=== PATIENT | female | born 1950 | race Caucasian/White ===

== ENCOUNTER 2017-06-16 06:55 | Day surgery (SDC) | payer MEDICARE ==
[~2017-06-16 06:55] MED LIST: Bupivacaine 0.25%/EPINEPHrine 1:200,000 30 ML SDV ONE; methylPREDNISolone Acetate 80 MG/ML SDV ONE
[2017-06-16] MEDS ORDERED: Lactated Ringers 1,000 ML IV SCH (07:30)
[2017-06-16] MEDS ORDERED: Dexamethasone 4 MG/ML SDV ONE (08:05)
[2017-06-16] MEDS ORDERED: Propofol 200 MG/20 ML SDV ONE (08:05)
[2017-06-16] MEDS ORDERED: fentaNYL 250 MCG/5 ML SDV ONE (08:05)
[2017-06-16] MEDS ORDERED: Ondansetron 4 MG/2 ML SDV ONE (08:05)
[2017-06-16] MEDS ORDERED: Clindamycin Phosphate 900 MG in Sodium Chloride 0.9% 100 ML IV ONE (08:45)
[2017-06-16 10:18] VITALS: BP 126/74
[2017-06-16] MEDS ORDERED: Acetaminophen/oxyCODONE 325-5 MG Tab PO ONE (10:30)
--- NOTE | 2017-06-16 13:13 | OR ---
DATE OF PROCEDURE: 06/16/2017 PREOPERATIVE DIAGNOSES: 1. Torn medial meniscus, left knee. 2. Osteoarthritis grade 4, medial compartment. 3. Osteoarthritis grade 2, grade 3 patella. 4. Osteoarthritis grade 1, lateral tibial plateau. POSTOPERATIVE DIAGNOSES: 1. Torn medial meniscus, left knee. 2. Osteoarthritis grade 4, medial compartment. 3. Osteoarthritis grade 2, grade 3 patella. 4. Osteoarthritis grade 1, lateral tibial plateau. INTERVENTION: Scope left knee, shaving medial meniscus, shaved to a stable chondral base, medial femoral condyle. BLOOD LOSS: Minimum. COMPLICATIONS: No complications. MEDICATIONS: Injection of 8 mL of Marcaine and 80 mg of Depo-Medrol. INDICATIONS: Mariajose, healthy for her age, had been having some knee pain for the last 2 years, flared up in the last 6 months. 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 Got worse with time. Two Synvisc injections, multiple injections. Good relief, but the last one did not have much relief. She had an MRI done which showed some osteoarthritic changes moderate with a joint effusion. Since she had failed conservative treatment it was decided to proceed with surgery. I had discussed with the patient the possible risks, benefits, alternatives, and complications of surgery. The nature of the surgery was explained. All questions were answered and I had informed consent. PROCEDURE IN DETAIL: The patient was brought to the OR. I did my markings on the left knee. She did receive antibiotics preop. The COURT USHER proceeded with general anesthesia. The patient is put on her back. A tourniquet was applied to the left proximal quadriceps. Sterile prep and dressing were done in the usual manner on the left knee. Time-out was taken to identify the correct surgical site to make sure all instrumentation were present in the room. The leg was elevated, tourniquet was raised to 250 mmHg. The knee was bent 90 degrees. An anterior lateral portal incision was done with the scalpel. A blunt probe entered the articulation, followed by irrigation and camera. Visualizing the articulation showed some arthritic changes quite intense, mostly grade 4. We could see bone exposed about 70% of the surface with slight fraying of the cartilage at the periphery, which was flaky and probably unstable which will be shaved and also degenerative tear in mid posterior horn of the medial meniscus with certainly grade 4 on the medial compartment. The intercondylar notch was fine. The patella shows diffusely grade 2, grade 3 osteoarthritic changes. Medial and lateral suprapatellar pouch did not show any loose bodies, fairly well normal. The lateral compartment, no chondromalacia of the lateral condyle but grade 1, may be slight grade 2 of the lateral plateau but no lateral meniscal tear, and the ACL was intact. An incision was done at the anterior medial portal after blunt probe was entered with the shaver, shaved the mid posterior horn of the medial meniscus, and stable chondral base mostly to periphery from loose cartilage which went well. All instrumentation were removed. The skin was closed with 3-0 simple sutures and injection of 8 mL of Marcaine, 80 mg of Depo-Medrol was done, and sterile dressing was applied. Tourniquet was released. Blood loss was minimal. There was no complication. The patient tolerated well the operation. She was sent to recovery room in good condition. If she does not do too well in the future with this procedure, then she may be a candidate to do a knee replacement in the future. Tera Connelly MD /[id number]
== END 2017-06-16 10:43 | disposition home or self-care (01) ==
LOC: JP.SDS 06:55
PROVIDERS: ATTEND Orthopaedic Surgery
DX: S83.242A Other tear of medial meniscus, current injury, left knee, initial encounter (principal); M17.12 Unilateral primary osteoarthritis, left knee; I10 Essential (primary) hypertension; E55.9 Vitamin D deficiency, unspecified; G43.919 Migraine, unspecified, intractable, without status migrainosus; F51.01 Primary insomnia; Z79.899 Other long term (current) drug therapy; Z88.2 Allergy status to sulfonamides; Z88.0 Allergy status to penicillin; Z88.8 Allergy status to other drugs, medicaments and biological substances; Z91.018 Allergy to other foods; Z88.5 Allergy status to narcotic agent; Z90.49 Acquired absence of other specified parts of digestive tract
CPT/HCPCS: 29877; A9270; J1040; J1100; J2405; J2704; J3010; J7030; J7120; S0077

== ENCOUNTER 2018-06-30 10:02 | Outpatient (CLI) | payer MEDICARE ==
[~2018-06-30 10:02] MED LIST changes: -Bupivacaine 0.25%/EPINEPHrine 1:200,000 30 ML SDV ONE; +Bupivacaine 0.5% 30 ML SDV ONE; -methylPREDNISolone Acetate 80 MG/ML SDV ONE
[2018-06-30] MEDS ORDERED: Bupivacaine 0.5% 30 ML SDV ONE (10:16)
[2018-06-30] MEDS ORDERED: methylPREDNISolone Acetate 40 MG/ML SDV ONE (10:16)
[2018-06-30 10:50] VITALS: BP 140/56; PULSE 79
--- NOTE | 2018-06-30 17:56 | ANES ---
DATE OF SERVICE: 06/30/2018 INDICATION: Mrs. Ruff is a 67-year-old female patient, referred to the [facility] to us by Dr. Chua. She is here today for her trigger points. Please see the orders for the patient's preprocedure diagnosis as well as ICD-10 code. The risks and benefits of the procedure were explained to the patient. She wished to proceed with trigger point injections. TECHNIQUE: I did find 22 noticeable cervical, lumbar and sacral trigger points. I injected each of these with 1 to 2 mL of 0.5% Sensorcaine with a Depo-Medrol mixture. She tolerated the procedure very nicely. Her vital signs remained stable throughout the procedure and nurse was with me for the entire procedure. There were no anesthesia complications noted. She is going to return as needed for any further injections. She was discharged from the [facility] per protocol. Aguilar Terrazas CRNA /[id number]
== END 2018-06-30 10:53 | disposition home or self-care (01) ==
LOC: JP.PAIN 10:02
PROVIDERS: ATTEND Internal Medicine
DX: M53.87 Other specified dorsopathies, lumbosacral region (principal)
CPT/HCPCS: 20553; J3490; J1030

== ENCOUNTER 2020-02-14 14:33 | Emergency (ER) | payer MEDICARE ==
--- NOTE | 2020-02-14 15:07 | EDM.PDOC ---
ED HPI GENERAL MEDICAL PROBLEM - General Chief Complaint: Chest Pain Stated Complaint: SORENESS & INFLAMMATION IN THE RIB AREA Time Seen by Provider: 02/14/20 14:45 Source of Information: Reports: Patient History Limitations: Reports: No Limitations - History of Present Illness INITIAL COMMENTS - FREE TEXT/NARRATIVE: 69-year-old female arrives with chest pain and pressure for the last 6 hours. It feels very similar to her last 2 episodes of costochondritis. It came on fairly gradually, hurts to breathe and hurts to sit up. She does not feel short of breath. She does feel like "an elephant is sitting on her". She has no cardiac history in fact had a normal angiogram in the past but that was "20 years ago". She has ankylosing spondylitis which causes intermittent mu sculoskeletal pain Onset: Gradual Duration: Hour(s): (6 hours) Location: Reports: Chest Quality: Reports: Pressure, Sharp, Stabbing (With movement) Associated Symptoms: Reports: Other (Pleuritic chest pain with breathing, no other symptoms) Middle Sternum Pain Score (Numeric/FACES): 8 - Related Data Allergies Allergy/AdvReac Type Severity Reaction Status Date / Time Sulfa (Sulfonamide Allergy Severe Anaphylactic Verified 02/01/20 10:20 Antibiotics) Shock acetaminophen [From Vicodin] Allergy Cannot Verified 02/01/20 10:20 Remember azithromycin [From Zithromax] Allergy Cannot Verified 02/01/20 10:20 Remember casein Allergy Cannot Verified 02/01/20 10:20 Remember cephalexin [From Keflex] Allergy Cannot Verified 02/01/20 10:20 Remember ciprofloxacin Allergy Cannot Verified 02/01/20 10:20 Remember divalproex sodium Allergy Cannot Verified 02/01/20 10:20 [From Depakote] Remember erythromycin base Allergy Cannot Verified 02/01/20 10:20 Remember hydrocodone [From Vicodin] Allergy Cannot Verified 02/01/20 10:20 Remember ibuprofen [From Motrin] Allergy Cannot Verified 02/01/20 10:20 Remember infliximab Allergy Cannot Verified 02/01/20 10:20 Remember meloxicam Allergy Cannot Verified 02/01/20 10:20 Remember methadone Allergy Cannot Verified 02/01/20 10:20 Remember naloxone [From Talwin NX] Allergy Cannot Verified 02/01/20 10:20 Remember nortriptyline [From Pamelor] Allergy Cannot Verified 02/01/20 10:20 Remember Penicillins Allergy Hives Verified 02/01/20 10:20 pentazocine [From Talwin NX] Allergy Cannot Verified 02/01/20 10:20 Remember succinylcholine Allergy Cannot Verified 02/01/20 10:20 Remember codeine AdvReac Hyperactivi Verified 02/01/20 10:20 ty hydromorphone [From Dilaudid] AdvReac Vomiting Verified 02/01/20 10:20 NSAIDS (Non-Steroidal AdvReac Diarrhea Verified 02/01/20 10:20 Anti-Inflamma Quinolones AdvReac Nausea and Verified 02/01/20 10:20 Vomiting tetracycline AdvReac Nausea and Verified 02/01/20 10:20 Vomiting whey AdvReac Diarrhea Verified 02/01/20 10:20 Home Meds: Home Meds Diphenoxylate HCl/Atropine [Diphenoxylate-Atrop 2.5-0.025] 1 tab PO ASDIRECTED PRN 10/01/16 [History] Folic Acid 1 mg PO DAILY 10/01/16 [History] estradioL [Estradiol] 1 patch TRDERM WEEKLY 10/01/16 [History] oxyCODONE HCl/Acetaminophen [oxyCODONE-Acetaminophen 10-325] 1 tab PO BID PRN 10/01/16 [History] SUMAtriptan succinate [Imitrex] 100 mg PO ASDIRECTED PRN 11/19/16 [History] Cholestyramine/Sucrose [Cholestyramine Packet] 4 gm PO DAILY PRN 06/15/17 [History] Lutein/Minerals/Vit A,C & E [Ocuvite] 1 tab PO DAILY 06/15/17 [History] Ondansetron 4 mg PO Q6H PRN 06/15/17 [History] metroNIDAZOLE [metroNIDAZOLE 0.75% Gel] 1 film TOP DAILY 06/30/18 [History] Famotidine 10 mg PO BID 01/05/19 [History] Baclofen 5 mg PO TID 02/23/19 [History] Gabapentin [Neurontin] 300 mg PO BID 11/23/19 [History] Meloxicam 15 mg PO ASDIRECTED PRN 02/01/20 [History] Rizatriptan [Maxalt MUSEUM SECURITY CHIEF] 10 mg PO ASDIRECTED PRN 02/01/20 [History] Past Medical History HEENT History: Reports: Impaired Vision Cardiovascular History: Reports: Other (See Below) Other Cardiovascular History: PVC's Respiratory History: Reports: SOB Gastrointestinal History: Reports: Chronic Diarrhea, Colon Polyp DATA REVIEWER History: Reports: Ectopic Musculoskeletal History: Reports: Arthritis, Back Pain, Chronic Neurological History: Reports: Migraines Psychiatric History: Reports: Depression, Panic Attack Hematologic History: Reports: Other (See Below) Other Hematologic History: suscinylcholinesterase deficient Immunologic History: Reports: Other (See Below) Oncologic (Cancer) History: Reports: Cervix - Infectious Disease History Infectious Disease History: Reports: Chicken Pox, Influenza, Measles, Mumps - Past Surgical History Head Surgeries/Procedures: Reports: None HEENT Surgical History: Reports: Adenoidectomy, Laser Surgery, Tonsillectomy Cardiovascular Surgical History: Reports: None Respiratory Surgical History: Reports: None GI Surgical History: Reports: Appendectomy, Cholecystectomy, Colonoscopy, EGD, Small Bowel Neurological Surgical History: Reports: None Musculoskeletal Surgical History: Reports: Shoulder Surgery Oncologic Surgical History: Reports: None Dermatological Surgical History: Reports: None Social & Family History - Family History Family Medical History: No Pertinent Family History - Tobacco Use Tobacco Use Status *Q: Never Tobacco User - Caffeine Use Caffeine Use: Reports: Soda - Recreational Drug Use Recreational Drug Use: No ED ROS GENERAL - Review of Systems Review Of Systems: See Below Constitutional: Denies: Fever, Chills, Malaise, Decreased Appetite HEENT: Reports: No Symptoms Respiratory: Reports: Pleuritic Chest Pain Cardiovascular: Reports: Chest Pain. Denies: Palpitations GI/Abdominal: Denies: Abdominal Pain, Nausea, Vomiting Skin: Reports: No Symptoms Neurological: Reports: No Symptoms Psychiatric: Reports: No Symptoms ED EXAM, GENERAL - Physical Exam Exam: See Below Exam Limited By: No Limitations General Appearance: Alert, No Apparent Distress Respiratory/Chest: No Respiratory Distress, Lungs Clear, Other (Anterior chest wall is very tender to palpation, especially on the left side) Cardiovascular: Regular Rate, Rhythm. No: Extra Beats GI/Abdominal: Soft, Non-Tender Extremities: Normal Inspection Neurological: Alert, Oriented Psychiatric: Normal Affect, Normal Mood Skin Exam: Warm, Dry #1 Interpretation EKG Date: 02/14/20 Rhythm: NSR ST-T: Normal (No significant elevation or depression, unfortunately no previous to compare) Course - Vital Signs Last Recorded V/S: Last Vital Signs Temp 97.5 F 02/14/20 14:45 Pulse 69 02/14/20 15:12 Resp 10 L 02/14/20 15:12 BP 159/83 H 02/14/20 15:12 Pulse Ox 94 L 02/14/20 15:12 - Orders/Labs/Meds Orders: Active Orders 24 hr Category Date Time Status EKG 12 Lead [EK] Routine Ther 02/14/20 15:00 Ordered Labs: Laboratory Tests 02/14/20 Range/Units 15:10 Troponin I < 0.017 (0.000-0.056) ng/mL Meds: Medications Discontinued Medications Generic Name Dose Route Start Last Admin Trade Name Freq PRN Reason Stop Dose Admin Ketorolac Tromethamine 60 mg 02/14/20 15:08 02/14/20 15:17 Toradol IM 02/14/20 15:09 60 mg ONETIME ONE Administration - Re-Assessments/Exams Free Text/Narrative Re-Assessment/Exam: 02/14/20 15:07 Symptoms are very typical for musculoskeletal pain, EKG is nonspecific. A troponin was drawn and the patient will be given 1 injection of Toradol. 02/15/20 07:32 Troponin was 0, patient was feeling better after the Toradol. She was disch arged with a diagnosis of costochondritis. Departure - Departure Time of Disposition: 16:15 Disposition: Home, Self-Care 01 Clinical Impression: Costochondritis, acute - Discharge Information Instructions: Costochondritis, [id number] Referrals: Kan Chua MD [Primary Care Provider] - Forms: ED Department Discharge Care Plan Goals: Warm compresses to the sore areas may be helpful, anti-inflammatories if tolerated and increase activity as tolerated. Return anytime if worsening or concerns. Sepsis Event Note (ED) - Evaluation Sepsis Screening Result: No Definite Risk - My Orders Last 24 Hours: My Active Orders 02/14/20 15:00 EKG 12 Lead [EK] Routine - Assessment/Plan Last 24 Hours: My Active Orders 02/14/20 15:00 EKG 12 Lead [EK] Routine
[2020-02-14] MEDS ORDERED: Ketorolac 60 MG/2 ML SDV IM ONE (15:08)
[2020-02-14 15:13] VITALS: BP 159/83; PULSE 69
== END 2020-02-14 16:16 | disposition home or self-care (01) ==
LOC: JP.ED 14:33
DX: M94.0 Chondrocostal junction syndrome [Tietze] (principal); G43.909 Migraine, unspecified, not intractable, without status migrainosus; Z88.2 Allergy status to sulfonamides; Z88.6 Allergy status to analgesic agent; Z88.1 Allergy status to other antibiotic agents; Z88.8 Allergy status to other drugs, medicaments and biological substances; Z88.5 Allergy status to narcotic agent; Z88.0 Allergy status to penicillin; Z79.899 Other long term (current) drug therapy
CPT/HCPCS: 36415; 84484; 93005; 96372; 99284; J1885

== ENCOUNTER 2021-02-10 09:41 | Emergency (ER) | payer MEDICARE ==
--- NOTE | 2021-02-10 10:37 | EDM.PDOC ---
ED HPI GENERAL MEDICAL PROBLEM - General Chief Complaint: Lower Extremity Injury/Pain Stated Complaint: LT LEG PAIN/FOOT SWOLLEN Time Seen by Provider: 02/10/21 10:34 Source of Information: Reports: Patient History Limitations: Reports: No Limitations - History of Present Illness INITIAL COMMENTS - FREE TEXT/NARRATIVE: p noted pain in the left leg with swelling on Aneta Armida Am She is having pain with weight bearing. She has no past history of blood clot problems. Her mother did of a pulmonary embolism. r Onset: Other ( Shannan Armida Am. ) Duration: Hour(s): Location: Reports: Lower Extremity, Left Associated Symptoms: Reports: No Other Symptoms, Other (pt has not had pleuritic chest pain of sob. ) Left Leg Pain Score (Numeric/FACES): 7 - Related Data Allergies Allergy/AdvReac Type Severity Reaction Status Date / Time Sulfa (Sulfonamide Allergy Severe Anaphylactic Verified 02/10/21 10:07 Antibiotics) Shock acetaminophen [From Vicodin] Allergy Cannot Verified 02/10/21 10:07 Remember azithromycin [From Zithromax] Allergy Cannot Verified 02/10/21 10:07 Remember casein Allergy Cannot Verified 02/10/21 10:07 Remember cephalexin [From Keflex] Allergy Cannot Verified 02/10/21 10:07 Remember ciprofloxacin Allergy Cannot Verified 02/10/21 10:07 Remember divalproex sodium Allergy Cannot Verified 02/10/21 10:07 [From Depakote] Remember erythromycin base Allergy Cannot Verified 02/10/21 10:07 Remember hydrocodone [From Vicodin] Allergy Cannot Verified 02/10/21 10:07 Remember ibuprofen [From Motrin] Allergy Cannot Verified 02/10/21 10:07 Remember infliximab Allergy Cannot Verified 02/10/21 10:07 Remember meloxicam Allergy Cannot Verified 02/10/21 10:07 Remember methadone Allergy Cannot Verified 02/10/21 10:07 Remember naloxone [From Talwin NX] Allergy Cannot Verified 02/10/21 10:07 Remember nortriptyline [From Pamelor] Allergy Cannot Verified 02/10/21 10:07 Remember Penicillins Allergy Hives Verified 02/10/21 10:07 pentazocine [From Talwin NX] Allergy Cannot Verified 02/10/21 10:07 Remember succinylcholine Allergy Cannot Verified 02/10/21 10:07 Remember valproic acid Allergy Other Verified 02/10/21 10:07 codeine AdvReac Hyperactivi Verified 02/10/21 10:07 ty hydromorphone [From Dilaudid] AdvReac Vomiting Verified 02/10/21 10:07 NSAIDS (Non-Steroidal AdvReac Diarrhea Verified 02/10/21 10:07 Anti-Inflamma Quinolones AdvReac Nausea and Verified 02/10/21 10:07 Vomiting tetracycline AdvReac Nausea and Verified 02/10/21 10:07 Vomiting whey AdvReac Diarrhea Verified 02/10/21 10:07 Home Meds: Home Meds Diphenoxylate HCl/Atropine [Diphenoxylate-Atrop 2.5-0.025] 1 tab PO ASDIRECTED PRN 10/01/16 [History] Folic Acid 1 mg PO DAILY 10/01/16 [History] estradioL [Estradiol] 1 patch TRDERM WEEKLY 10/01/16 [History] oxyCODONE HCl/Acetaminophen [oxyCODONE-Acetaminophen 10-325] 1 tab PO BID PRN 10/01/16 [History] SUMAtriptan succinate [Imitrex] 100 mg PO ASDIRECTED PRN 11/19/16 [History] Cholestyramine/Sucrose [Cholestyramine Packet] 4 gm PO DAILY PRN 06/15/17 [History] Ondansetron 4 mg PO Q6H PRN 06/15/17 [History] metroNIDAZOLE [metroNIDAZOLE 0.75% Gel] 1 film TOP DAILY PRN 06/30/18 [History] Baclofen 10 mg PO TID 02/23/19 [History] Rizatriptan [Maxalt MANAGER ART] 10 mg PO ASDIRECTED PRN 02/01/20 [History] Cyanocobalamin (Vitamin B12) [Vitamin B12] 1,000 mcg IM Q30D 02/29/20 [History] Cyanocobalamin/Cobamamide [B-12 5,000 MCG Sublingual] 5,000 mcg SL DAILY 02/29/20 [History] Albuterol Sulfate [Albuterol Sulfate Hfa] 18 gm IH ASDIRECTED PRN 04/18/20 [History] Diclofenac Sodium [Voltaren 1% Gel] 1 applic TOP QID PRN 04/18/20 [History] Melatonin 1 mg PO BEDTIME PRN 04/18/20 [History] Mometasone Furoate [Elocon] 1 applic TOP ASDIRECTED 04/18/20 [History] metHOTREXate sodium [Methotrexate] 2.5 mg PO ASDIRECTED 04/18/20 [History] Alendronate Sodium [Fosamax] 70 mg PO .WEEKLY 04/25/20 [History] Pantoprazole Sodium [Protonix] 40 mg PO BID 05/23/20 [History] Calcium Citrate 500 mg PO DAILY 07/06/20 [History] Fluoride (Sodium) [Prevident 5000 Plus] 1 applic TOP BID 07/06/20 [History] Fluticasone/Salmeterol [Advair 100-50] 1 puff INH BID 07/06/20 [History] Mesalamine [Lialda] 1.2 gm PO QAM 07/06/20 [History] Rosuvastatin [Crestor] 5 mg PO DAILY 07/06/20 [History] hydrOXYzine pamoate [Vistaril] 50 mg PO Q8H PRN 07/06/20 [History] Terbinafine [LamISIL] 250 mg PO DAILY 11/13/20 [History] bisoproloL fumarate [Bisoprolol Fumarate] 2.5 mg PO DAILY 01/30/21 [History] Past Medical History HEENT History: Reports: Impaired Vision Cardiovascular History: Reports: Other (See Below) Other Cardiovascular History: PVC's, 40% blockage in LAD Respiratory History: Reports: SOB Gastrointestinal History: Reports: Chronic Diarrhea, Colon Polyp Genitourinary History: Reports: None TUBE DRAWER History: Reports: Ectopic Musculoskeletal History: Reports: Arthritis, Back Pain, Chronic Neurological History: Reports: Migraines Psychiatric History: Reports: Depression, Panic Attack Endocrine/Metabolic History: Reports: None Hematologic History: Reports: Other (See Below) Other Hematologic History: suscinylcholinesterase deficient Immunologic History: Reports: Other (See Below) Oncologic (Cancer) History: Reports: Cervix - Infectious Disease History Infectious Disease History: Reports: Chicken Pox, Influenza, Measles, Mumps - Past Surgical History Head Surgeries/Procedures: Reports: None HEENT Surgical History: Reports: Adenoidectomy, Cataract Surgery, Laser Surgery, Tonsillectomy Cardiovascular Surgical History: Reports: None Respiratory Surgical History: Reports: None GI Surgical History: Reports: Appendectomy, Cholecystectomy, Colonoscopy, EGD, Small Bowel Other GI Surgeries/Procedures: bowel resection 18 inches removed Female Surgical History: Reports: Hysterectomy Neurological Surgical History: Reports: None Musculoskeletal Surgical History: Reports: Knee Replacement, Shoulder Surgery Other Musculoskeletal Surgeries/Procedures:: left total knee Oncologic Surgical History: Reports: None Dermatological Surgical History: Reports: None Social & Family History - Family History Family Medical History: No Pertinent Family History - Tobacco Use Tobacco Use Status *Q: Never Tobacco User - Caffeine Use Caffeine Use: Reports: None - Recreational Drug Use Recreational Drug Use: No Review of Systems - Review of Systems Review Of Systems: See Below Constitutional: Reports: No Symptoms Eyes: Reports: No Symptoms Ears: Reports: No Symptoms Nose: Reports: No Symptoms Mouth/Throat: Reports: No Symptoms Respiratory: Reports: No Symptoms Cardiovascular: Reports: No Symptoms Musculoskeletal: Reports: Other (pain and swelling in left leg. ) ED EXAM, GENERAL - Physical Exam Exam: See Below Free Text/Narrative:: pt arrived with pain and swelling in the left leg. She has pain in left heel. Exam Limited By: No Limitations General Appearance: Alert, Anxious, Mild Distress Ears: Normal TMs Nose: Normal Inspection Throat/Mouth: Normal Inspection Head: Atraumatic Neck: Normal Inspection Respiratory/Chest: No Respiratory Distress Cardiovascular: Regular Rate, Rhythm GI/Abdominal: Soft, Non-Tender Rectal (Female) Exam: Deferred Back Exam: Normal Inspection Extremities: Other (pt has a very tender and mildly swollen left leg. She is tender in the calf and she is tender behind the knee. She has had a total knee on thw left. She is tender over the left heel. r) Neurological: Alert, Oriented, Normal Cognition Course - Vital Signs Last Recorded V/S: Last Vital Signs Temp 36.1 C 02/10/21 10:06 Pulse 54 L 02/10/21 15:12 Resp 16 02/10/21 15:12 BP 161/67 H 02/10/21 15:12 Pulse Ox 97 02/10/21 15:12 - Orders/Labs/Meds Labs: Laboratory Tests 02/10/21 02/10/21 02/10/21 Range/Units 10:32 10:45 11:40 WBC 8.7 (4.5-11.0) K/uL RBC 3.66 (3.30-5.50) M/uL Hgb 11.6 L (12.0-15.0) g/dL Hct 36.2 (36.0-48.0) % MCV 99 H (80-98) fL MCH 32 H (27-31) pg MCHC 32 (32-36) % Plt Count 285 (150-400) K/uL Neut % (Auto) 63.5 (36-66) % Lymph % (Auto) 23.7 L (24-44) % [place] % (Auto) 10.2 H (2-6) % Eos % (Auto) 1.9 L (2-4) % Baso % (Auto) 0.7 (0-1) % D-Dimer, Quantitative 2039.38 H (0.0-500.0) ng/mL Creatinine (0.6-1.0) mg/dL Est Cr Clr Drug Dosing mL/min Estimated GFR (MDRD) (>60) C-Reactive Protein 0.08 (0.0-0.3) mg/dL 02/10/21 Range/Units 12:30 WBC (4.5-11.0) K/uL RBC (3.30-5.50) M/uL Hgb (12.0-15.0) g/dL Hct (36.0-48.0) % MCV (80-98) fL MCH (27-31) pg MCHC (32-36) % Plt Count (150-400) K/uL Neut % (Auto) (36-66) % Lymph % (Auto) (24-44) % [place] % (Auto) (2-6) % Eos % (Auto) (2-4) % Baso % (Auto) (0-1) % D-Dimer, Quantitative (0.0-500.0) ng/mL Creatinine 1.1 H (0.6-1.0) mg/dL Est Cr Clr Drug Dosing 33.21 mL/min Estimated GFR (MDRD) 49 L (>60) C-Reactive Protein (0.0-0.3) mg/dL Meds: Medications Discontinued Medications Generic Name Dose Route Start Last Admin Trade Name Freq PRN Reason Stop Dose Admin Sodium Chloride 70 mls @ 3 mls/sec 02/10/21 12:25 02/10/21 12:25 Normal Saline IV 02/10/21 12:26 3 mls/sec ASDIRECTED ONE Administration Sodium Chloride 1,000 mls @ 999 mls/hr 02/10/21 14:00 02/10/21 14:00 Normal Saline IV 999 mls/hr ASDIRECTED NIESHA Administration Iopamidol 100 ml 02/10/21 12:30 02/10/21 13:07 Iopamidol 755 Mg/Ml 100 Ml Bottle IV 100 ml . DIRECTED NEISHA Administration Oxycodone/Acetaminophen 1 tab 02/10/21 14:11 02/10/21 14:40 Acetaminophen/Oxycodone 325-5 Mg Tab PO 02/10/21 14:12 1 tab ONETIME ONE Administration Sodium Chloride 10 ml 02/10/21 12:44 02/10/21 12:46 Sodium Chloride 0.9% 10 Ml Syringe FLUSH 10 ml . DIRECTED PRN Administration [id number] EXAM - Re-Assessments/Exams Free Text/Narrative Re-Assessment/Exam: 02/10/21 15:03 ddimer over 1999. Her us was neg for clot. Her chest angio was done because of the high ddimer. and left leg pain. The angio was neg. An xary of the foot was obtained which showed a spur. 02/19/21 18:42 Departure - Departure Time of Disposition: 14:57 Disposition: Home, Self-Care 01 Condition: Fair Clinical Impression: Pain in left leg, Heel spur, Elevated d-dimer - Discharge Information Instructions: Heel Spur Referrals: Kan Chua MD [Primary Care Provider] - Forms: ED Department Discharge Care Plan Goals: heel pad for spur left heel, motrin 600mg tid with food for 5 days, pepcid 20 mg bid while taking the motrin, soak foot in warm water, moist heat to the left leg,rtc if increased problem. push fluids. Sepsis Event Note (ED) - Evaluation Sepsis Screening Result: No Definite Risk
--- NOTE | 2021-02-10 12:26 | CRLUS ---
For Patients: As a result of the Century Cures Act, medical imaging exams and procedure reports are released immediately into your electronic medical record. You may view this report before your referring provider. If you have questions, please contact your health care provider. INDICATION: Elevated D-dimer leg pain TECHNIQUE: A compression venous ultrasound exam was performed of left lower extremities using schulte scale imaging, color Doppler and spectral Doppler analysis. FINDINGS: Sonographic imaging of the left lower extremities demonstrates normal compressibility and color Doppler venous blood flow within the common femoral, deep femoral, and proximal greater saphenous veins. Within the thighs the femoral veins are patent and compressible. At a lower level the popliteal and posterior tibial veins also show normal compressibility and color Doppler venous blood flow. IMPRESSION: No evidence of deep vein thrombosis within either the left lower extremity. Dictated by Emmy Avila MD @ 02/10/2021 12:23:39 PM (Electronically Signed)
[2021-02-10] MEDS ORDERED: Iopamidol 755 Mg/ML 100 ML Bottle IV SCH (12:30)
[2021-02-10] MEDS ORDERED: Sodium Chloride 0.9% 10 ML Syringe FLUSH PRN (12:44)
[2021-02-10] MEDS ORDERED: Sodium Chloride 0.9% 1,000 ML IV SCH (14:00)
--- NOTE | 2021-02-10 14:00 | CRLCT ---
For Patients: As a result of the Century Cures Act, medical imaging exams and procedure reports are released immediately into your electronic medical record. You may view this report before your referring provider. If you have questions, please contact your health care provider. Clinical INDICATION: Shortness of breath. Elevated D-dimer. TECHNIQUE: Axial intravenously infused CT cuts were performed from thoracic inlet to the upper abdomen. FINDINGS: There are no pulmonary emboli. There is no aortic aneurysm or dissection. There is mild atelectasis in both lungs. There are no pulmonary nodules or masses. There are no pleural or pericardial fluid collections. There are no enlarged hilar or mediastinal or axillary lymph nodes. The visualized liver, spleen, pancreas, adrenals and kidneys appear normal. Impression : Negative for pulmonary emboli. Please note that all CT scans at this facility use dose modulation, iterative reconstruction, and/or weight-based dosing when appropriate to reduce radiation dose to as low as reasonably achievable. Dictated by Leon Martinez MD @ 02/10/2021 1:58:01 PM (Electronically Signed)
[2021-02-10] MEDS ORDERED: Acetaminophen/oxyCODONE 325-5 MG Tab PO ONE (14:11)
[2021-02-10 15:12] VITALS: BP 161/67; PULSE 54
--- NOTE | 2021-02-11 15:09 | CR ---
FOOT RIGHT 3 views CLINICAL HISTORY:Heel pain FINDINGS:There is a large calcaneal spur. There are moderate hammertoe deformities. 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
== END 2021-02-10 15:31 | disposition home or self-care (01) ==
LOC: JP.ED 09:41
DX: M77.32 Calcaneal spur, left foot (principal); R79.89 Other specified abnormal findings of blood chemistry; Z88.2 Allergy status to sulfonamides; Z88.1 Allergy status to other antibiotic agents; Z88.0 Allergy status to penicillin; Z88.5 Allergy status to narcotic agent; Z88.8 Allergy status to other drugs, medicaments and biological substances; Z79.899 Other long term (current) drug therapy
CPT/HCPCS: 36415; 71275; 73630; 82565; 85025; 85379; 86140; 93971; 99284; A9270; J7030; Q9967

== ENCOUNTER 2021-07-01 06:47 | Day surgery (SDC) | payer MEDICARE ==
[~2021-07-01 06:47] MED LIST changes: -Bupivacaine 0.5% 30 ML SDV ONE; +Bupivacaine 0.5% 50 ML MDV ONE
[2021-07-01] MEDS ORDERED: Lactated Ringers 1,000 ML IV SCH (07:00)
[2021-07-01] MEDS ORDERED: Neostigmine Methylsulfate 1 MG/ML 5 ML Syringe ONE (07:21)
[2021-07-01] MEDS ORDERED: Glycopyrrolate 0.2 MG/ML 5 ML MDV ONE (07:21)
[2021-07-01] MEDS ORDERED: Propofol 200 MG/20 ML SDV ONE (07:21)
[2021-07-01] MEDS ORDERED: Rocuronium 50 MG/5 ML Vial ONE (07:21)
[2021-07-01] MEDS ORDERED: Dexamethasone 4 MG/ML SDV ONE (07:21)
[2021-07-01] MEDS ORDERED: Ondansetron 4 MG/2 ML SDV ONE (07:21)
[2021-07-01] MEDS ORDERED: fentaNYL 250 MCG/5 ML SDV ONE ×2 (07:22→09:16)
[2021-07-01] MEDS ORDERED: Bupivacaine 0.5% 30 ML SDV ONE ×2 (07:23→07:24)
[2021-07-01] MEDS ORDERED: Nozin Nasal Sanitizer NASBOTH SCH (07:30)
[2021-07-01] MEDS ORDERED: Clindamycin Phosphate 900 MG in Sodium Chloride 0.9% 100 ML IV ONE (08:30)
[2021-07-01] MEDS ORDERED: Ondansetron 4 MG/2 ML SDV IVPUSH PRN (11:05)
[2021-07-01] MEDS ORDERED: Acetaminophen/oxyCODONE 325-5 MG Tab PO PRN (11:11)
[2021-07-01] MEDS ORDERED: Rizatriptan 10 MG Tab.DIS PO PRN (11:12)
[2021-07-01] MEDS ORDERED: Albuterol 8 GM Inhaler INH PRN (11:12)
[2021-07-01] MEDS ORDERED: traMADol 50 MG Tab PO PRN (11:12)
[2021-07-01] MEDS ORDERED: Atropine/Diphenoxylate 0.025-2.5 MG Tab PO PRN (11:12)
[2021-07-01] MEDS ORDERED: Sodium Chloride 0.9% 1,000 ML IV SCH (11:15)
[2021-07-01] MEDS ORDERED: Melatonin 3 MG Tab PO PRN (11:20)
[2021-07-01] MEDS ORDERED: Morphine 2 MG/ML SYRINGE IVPUSH ONE (11:30)
[2021-07-01] MEDS: Acetaminophen/oxyCODONE 325-10 MG Tab PO PRN ×2 (13:07→21:08)
[2021-07-01] MEDS: hydrOXYzine HCl 25 MG Tab PO PRN (13:08)
[2021-07-01] MEDS: Acetaminophen 325 MG Tab PO SCH ×2 (14:56→21:01)
[2021-07-01] MEDS: Baclofen 10 MG Tab PO SCH ×2 (14:56→21:03)
[2021-07-01] MEDS ORDERED: Clindamycin Phosphate 900 MG in Sodium Chloride 0.9% 100 ML IV SCH (16:30)
[2021-07-01] MEDS ORDERED: Benzocaine/Cetylpyridinium/Menthol Lozenge MUCMEM PRN (16:52)
[2021-07-01] MEDS ORDERED: BISOPROLOL 5 MG PO SCH (17:00)
[2021-07-01] MEDS ORDERED: Rosuvastatin 10 MG Tab PO SCH (17:00)
[2021-07-01] MEDS: Pantoprazole 40 MG Tab.CR PO SCH (17:44)
[2021-07-01] MEDS ORDERED: diphenhydrAMINE 25 MG Cap PO PRN (18:16)
[2021-07-01] MEDS: Aspirin 81 MG Tab.Chew PO SCH (21:01)
[2021-07-01] MEDS: Nozin Nasal Sanitizer NASBOTH SCH (21:01)
[2021-07-01] MEDS: Docusate Sodium 100 MG Cap PO SCH (21:03)
[2021-07-01] MEDS: Formoterol/Mometasone 100-5 MCG 8.8 GM Inhaler IH SCH (21:03)
[2021-07-02] MEDS: hydrOXYzine HCl 25 MG Tab PO PRN (00:16)
[2021-07-02] MEDS: HYDROmorphone 0.5 MG/0.5 ML Syringe IVPUSH PRN ×2 (01:11→06:32)
[2021-07-02] MEDS: Acetaminophen 325 MG Tab PO SCH ×2 (01:11→07:16)
[2021-07-02] MEDS: Acetaminophen/oxyCODONE 325-10 MG Tab PO PRN ×2 (04:01→08:37)
[2021-07-02] MEDS: Pantoprazole 40 MG Tab.CR PO SCH (07:16)
[2021-07-02] MEDS: Formoterol/Mometasone 100-5 MCG 8.8 GM Inhaler IH SCH (07:39)
[2021-07-02] MEDS: Aspirin 81 MG Tab.Chew PO SCH (08:24)
[2021-07-02] MEDS: Docusate Sodium 100 MG Cap PO SCH (08:24)
[2021-07-02] MEDS: Nozin Nasal Sanitizer NASBOTH SCH (08:24)
[2021-07-02] MEDS: Baclofen 10 MG Tab PO SCH (08:25)
[2021-07-02] MEDS ORDERED: Calcium Carbonate 500 MG Tab.Chew PO SCH (09:00)
[2021-07-02] MEDS ORDERED: Non-Formulary Medication 1 Each (Rosuvastatin [Crestor] 5 MG Tablet) PO SCH (09:00)
[2021-07-02] MEDS ORDERED: Folic Acid 1 MG Tab PO SCH (09:00)
[2021-07-02] MEDS ORDERED: Cyanocobalamin (Vitamin B12) 1,000 MCG Tab SL SCH (09:00)
[2021-07-02] MEDS ORDERED: BISOPROLOL FUMARATE 5 MG PO SCH (09:00)
[2021-07-02] MEDS ORDERED: MESALAMINE 1.2 GM PO SCH (09:00)
[2021-07-02] MEDS ORDERED: Terbinafine 250 MG Tab PO SCH (09:00)
[2021-07-02 11:32] VITALS: BP 131/60; PULSE 55
[2021-07-07] MEDS ORDERED: Methotrexate 2.5 MG Tab PO SCH (09:00)
== END 2021-07-02 13:47 | disposition home or self-care (01) ==
LOC: JP.SDS 06:47 → JP.MS 11:05 → JP.SDS 07-02 13:47
PROVIDERS: ATTEND Specialist
DX: M19.011 Primary osteoarthritis, right shoulder (principal); I10 Essential (primary) hypertension; G47.00 Insomnia, unspecified; E66.9 Obesity, unspecified; Z88.8 Allergy status to other drugs, medicaments and biological substances; Z88.4 Allergy status to anesthetic agent; Z88.1 Allergy status to other antibiotic agents; Z88.2 Allergy status to sulfonamides; Z88.5 Allergy status to narcotic agent; Z88.0 Allergy status to penicillin; Z88.6 Allergy status to analgesic agent; Z91.018 Allergy to other foods; Z68.30 Body mass index [BMI] 30.0-30.9, adult; Z79.899 Other long term (current) drug therapy; Z96.611 Presence of right artificial shoulder joint
CPT/HCPCS: 36415; 73020-26-RT; 73020-RT; 85027; 97110-GP; 97116-GP; 97162-GP; 97165-GO; 97535-GP; A9270-GY; C1713; J1100; J1170; J2270; J2405; J2704; J2710; J3010; J3490; J7030; J7120

== ENCOUNTER 2021-08-20 09:37 | Emergency (ER) | payer MEDICARE ==
[2021-08-20] MEDS ORDERED: fentaNYL 50 MCG/ML SDV IVPUSH ONE (12:42)
[2021-08-20] MEDS ORDERED: Sodium Chloride 0.9% 10 ML Syringe FLUSH ONE (13:49)
[2021-08-20] MEDS ORDERED: Sodium Chloride 0.9% 100 ML IV ONE (13:49)
[2021-08-20] MEDS ORDERED: Iopamidol 755 Mg/ML 100 ML Bottle IV SCH (14:00)
[2021-08-20 14:37] VITALS: BP 165/66; PULSE 61
== END 2021-08-20 15:17 | disposition home or self-care (01) ==
LOC: JP.ED 09:37
DX: R47.01 Aphasia (principal); M25.511 Pain in right shoulder; Z88.8 Allergy status to other drugs, medicaments and biological substances; Z88.2 Allergy status to sulfonamides; Z88.1 Allergy status to other antibiotic agents; Z88.5 Allergy status to narcotic agent; Z88.0 Allergy status to penicillin; Z91.048 Other nonmedicinal substance allergy status; Z79.899 Other long term (current) drug therapy
CPT/HCPCS: 36415; 70450; 70496; 70498; 80048; 85025; 85651; 86140; 96374; 99284; J3010; J3490; Q9967

== ENCOUNTER 2022-03-07 11:02 | Emergency (ER) | payer MEDICARE ==
[2022-03-07] MEDS ORDERED: Sodium Chloride 0.9% 500 ML IV ONE (12:06)
[2022-03-07 13:40] LABS: ESTIMATED GFR 59 mL/min (>60)
[2022-03-07 16:11] VITALS: BP 135/51; PULSE 78
== END 2022-03-07 16:30 | disposition home or self-care (01) ==
LOC: JP.ED 11:02
DX: U07.1 COVID-19 (principal); R53.1 Weakness; Z88.2 Allergy status to sulfonamides; Z88.1 Allergy status to other antibiotic agents; Z88.6 Allergy status to analgesic agent; Z88.5 Allergy status to narcotic agent; Z88.0 Allergy status to penicillin; Z91.048 Other nonmedicinal substance allergy status; Z79.899 Other long term (current) drug therapy; Z86.16 Personal history of COVID-19; Z90.49 Acquired absence of other specified parts of digestive tract; Z90.710 Acquired absence of both cervix and uterus
CPT/HCPCS: 36415; 80053; 85025; 96360; 99283; 99285-25; J7030

== ENCOUNTER 2022-10-08 08:01 | Day surgery (SDC) | payer MEDICARE ==
[2022-10-08] MEDS ORDERED: fentaNYL 250 MCG/5 ML SDV ONE (08:03)
[2022-10-08] MEDS ORDERED: Neostigmine Methylsulfate 1 MG/ML 5 ML Syringe ONE (08:03)
[2022-10-08] MEDS ORDERED: Glycopyrrolate 0.2 MG/ML 5 ML MDV ONE (08:03)
[2022-10-08] MEDS ORDERED: Rocuronium 50 MG/5 ML Vial ONE (08:03)
[2022-10-08] MEDS ORDERED: Propofol 200 MG/20 ML SDV ONE (08:03)
[2022-10-08] MEDS ORDERED: Dexamethasone 4 MG/ML SDV ONE (08:03)
[2022-10-08] MEDS ORDERED: Ondansetron 4 MG/2 ML SDV ONE (08:03)
[2022-10-08] MEDS ORDERED: Bupivacaine 0.5% 50 ML MDV ONE (08:17)
[2022-10-08] MEDS ORDERED: Lactated Ringers 1,000 ML IV SCH (08:30)
[2022-10-08] MEDS ORDERED: Nozin Nasal Sanitizer NASBOTH ONE (08:30)
[2022-10-08 08:47] LABS: BASOPHILS ABSOLUTE AUTO 0.04 K/uL (0.00-0.10); BASOPHILS PERCENT AUTO 0.4 % (0.1-1.3); EOSINOPHILS ABSOLUTE AUTO 0.25 K/uL (0.00-0.40); EOSINOPHILS PERCENT AUTO 2.3 % (0.0-5.4); HEMATOCRIT 37.5 % (34.3-46.0); HEMOGLOBIN 12.7 g/dL (11.2-15.5); IMMATURE GRAN ABSOLUTE AUTO 0.08 K/uL (0.00-0.23); IMMATURE GRAN PERCENT AUTO 0.8 % (0.0-0.7); LYMPHOCYTES ABSOLUTE AUTO 1.68 K/uL (0.8-3.3); LYMPHOCYTES PERCENT AUTO 15.8 % (11.4-47.7); MEAN CORPUSCULAR HEMOGLOBIN 33.3 pg (31.6-35.5); MEAN CORPUSCULAR HGB CONC 33.9 g/dL (31.6-35.5); MEAN CORPUSCULAR VOLUME 98.4 fL (81.4-99.0); MONOCYTES ABSOLUTE AUTO 0.59 K/uL (0.20-0.90); MONOCYTES PERCENT AUTO 5.5 % (3.3-12.6); NEUTROPHILS ABSOLUTE AUTO 8.01 K/uL (1.0-7.6); NEUTROPHILS PERCENT AUTO 75.2 % (40.0-78.1); PLATELET COUNT,PLT 285 K/uL (130-375); RED BLOOD CELL COUNT 3.81 M/uL (3.77-5.24); WHITE BLOOD CELL COUNT,WBC 10.7 K/uL (3.2-11.0)
[2022-10-08 09:07] LABS: A/G RATIO 0.9 (1.2-2.2); ALANINE AMINOTRANSFERASE,ALT 22 U/L (12-78); ALBUMIN 2.9 g/dL (3.4-5.0); ALKALINE PHOSPHATASE 52 U/L (46-116); ASPARTATE AMNIOTRANSFERASE,AST 15 U/L (15-37); BILIRUBIN TOTAL 0.5 mg/dL (0.2-1.0); BLOOD UREA NITROGEN,BUN 19 mg/dL (7-18); CALCIUM 8.3 mg/dL (8.5-10.1); CARBON DIOXIDE,CO2 26 mmol/L (21-32); CHLORIDE,CL 104 mmol/L (100-108); CREATININE 1.1 mg/dL (0.6-1.0); EST CRCL DRUG DOSING (CG) 32.72 mL/min; ESTIMATED GFR 53 mL/min (>60); GLUCOSE RANDOM 90 mg/dL (74-106); POTASSIUM,K 3.6 mmol/L (3.6-5.2); PROTEIN TOTAL,TP 6.2 g/dL (6.4-8.2); SODIUM,NA 139 mmol/L (140-148)
[2022-10-08 09:08] LABS: ANION GAP 12.6 mmol/L (5.0-14.0)
[2022-10-08] MEDS ORDERED: Sugammadex Sodium 200 MG/2 ML VIAL ONE (11:17)
[2022-10-08] MEDS ORDERED: traMADol 50 MG Tab PO PRN (12:25)
[2022-10-08 14:07] VITALS: BP 146/62; PULSE 69
== END 2022-10-08 14:29 | disposition home or self-care (01) ==
LOC: JP.SDS 08:01
PROVIDERS: ATTEND Specialist
DX: S73.191A Other sprain of right hip, initial encounter (principal); I10 Essential (primary) hypertension; K21.9 Gastro-esophageal reflux disease without esophagitis; Z88.8 Allergy status to other drugs, medicaments and biological substances; Z86.73 Personal history of transient ischemic attack (TIA), and cerebral infarction without residual deficits; Z88.0 Allergy status to penicillin; Z88.2 Allergy status to sulfonamides; Z88.5 Allergy status to narcotic agent; Z88.1 Allergy status to other antibiotic agents
CPT/HCPCS: 29862; 36415; 76000; 80053; 85025; 93005; 93010; A9270; C1769; J1100; J2405; J2704; J2710; J3010; J3490; J7120

== ENCOUNTER 2023-09-30 23:52 | Emergency (ER) | payer MEDICARE ==
[2023-10-01] MEDS ORDERED: droPERidol 1.25 MG in Sodium Chloride 0.9% 50 ML IV ONE (00:16)
[2023-10-01] MEDS: diphenhydrAMINE 50 MG/ML SDV IVPUSH ONE (00:40)
[2023-10-01] MEDS: droPERidol 5 MG/2 ML SDV ONE (00:43)
[2023-10-01] MEDS: droPERidol 5 MG/2 ML SDV IVPUSH ONE (00:44)
[2023-10-01] MEDS: Sodium Chloride 0.9% 1,000 ML IV SCH (00:46)
[2023-10-01 01:09] LABS: A/G RATIO 0.9 (1.2-2.2); ALANINE AMINOTRANSFERASE,ALT 29 U/L (12-78); ALBUMIN 3.2 g/dL (3.4-5.0); ALKALINE PHOSPHATASE 48 U/L (46-116); ANION GAP 9.5 mmol/L (5.0-14.0); ASPARTATE AMNIOTRANSFERASE,AST 37 U/L (15-37); BILIRUBIN TOTAL 0.5 mg/dL (0.2-1.0); BLOOD UREA NITROGEN,BUN 12 mg/dL (7-18); CALCIUM 8.9 mg/dL (8.5-10.1); CARBON DIOXIDE,CO2 29 mmol/L (21-32); CHLORIDE,CL 107 mmol/L (100-108); CREATININE 1.2 mg/dL (0.6-1.0); EST CRCL DRUG DOSING (CG) 29.54 mL/min; ESTIMATED GFR 48 mL/min (>60); GLUCOSE RANDOM 102 mg/dL (74-106); PROTEIN TOTAL,TP 6.6 g/dL (6.4-8.2); SODIUM,NA 145 mmol/L (140-148)
[2023-10-01 01:38] VITALS: BP 168/66; PULSE 64
== END 2023-10-01 03:00 | disposition home or self-care (01) ==
LOC: JP.ED 23:52
DX: G43.109 Migraine with aura, not intractable, without status migrainosus (principal); Z88.0 Allergy status to penicillin; Z88.1 Allergy status to other antibiotic agents; Z88.2 Allergy status to sulfonamides; Z88.8 Allergy status to other drugs, medicaments and biological substances; Z79.899 Other long term (current) drug therapy; Z86.16 Personal history of COVID-19
CPT/HCPCS: 36415; 70450; 80053; 96361; 96374; 99284; J1200; J1790; J7030

== ENCOUNTER 2023-10-16 14:32 | Emergency (ER) | payer MEDICARE ==
[2023-10-16] MEDS: Sodium Chloride 0.9% 1,000 ML IV SCH (16:13)
[2023-10-16] MEDS: Prochlorperazine 10 MG/2 ML SDV IVPUSH ONE (16:14)
[2023-10-16] MEDS: diphenhydrAMINE 50 MG/ML SDV IVPUSH ONE (16:17)
[2023-10-16 17:45] VITALS: BP 174/73; PULSE 51
== END 2023-10-16 18:23 | disposition home or self-care (01) ==
LOC: JP.ED 14:32
DX: G43.909 Migraine, unspecified, not intractable, without status migrainosus (principal); E78.00 Pure hypercholesterolemia, unspecified; Z86.16 Personal history of COVID-19; Z90.49 Acquired absence of other specified parts of digestive tract; Z90.710 Acquired absence of both cervix and uterus; Z79.899 Other long term (current) drug therapy; Z88.1 Allergy status to other antibiotic agents; Z88.2 Allergy status to sulfonamides; Z88.0 Allergy status to penicillin; Z88.5 Allergy status to narcotic agent; Z88.8 Allergy status to other drugs, medicaments and biological substances; Z88.6 Allergy status to analgesic agent; Z91.048 Other nonmedicinal substance allergy status
CPT/HCPCS: 96365; 96375; 99283; J0780; J1200; J3490; J7030

== ENCOUNTER 2023-10-22 12:25 | Emergency (ER) | payer MEDICARE ==
[2023-10-22 12:52] LABS: BASOPHILS ABSOLUTE AUTO 0.04 K/uL (0.00-0.10); BASOPHILS PERCENT AUTO 0.5 % (0.1-1.3); EOSINOPHILS ABSOLUTE AUTO 0.24 K/uL (0.00-0.40); EOSINOPHILS PERCENT AUTO 3.2 % (0.0-5.4); HEMOGLOBIN 13.6 g/dL (11.2-15.5); IMMATURE GRAN PERCENT AUTO 0.3 % (0.0-0.7); LYMPHOCYTES ABSOLUTE AUTO 1.62 K/uL (0.8-3.3); LYMPHOCYTES PERCENT AUTO 21.4 % (11.4-47.7); MEAN CORPUSCULAR VOLUME 97.1 fL (81.4-99.0); MONOCYTES ABSOLUTE AUTO 0.56 K/uL (0.20-0.90); MONOCYTES PERCENT AUTO 7.4 % (3.3-12.6); NEUTROPHILS ABSOLUTE AUTO 5.08 K/uL (1.0-7.6); NEUTROPHILS PERCENT AUTO 67.2 % (40.0-78.1); PLATELET COUNT,PLT 228 K/uL (130-375); RED BLOOD CELL COUNT 4.12 M/uL (3.77-5.24); WHITE BLOOD CELL COUNT,WBC 7.6 K/uL (3.2-11.0)
[2023-10-22 12:53] LABS: IMMATURE GRAN ABSOLUTE AUTO 0.02 K/uL (0.00-0.23)
[2023-10-22 13:07] LABS: ANION GAP 6.3 mmol/L (5.0-14.0); CALCIUM 9.3 mg/dL (8.5-10.1); CREATININE 1.2 mg/dL (0.6-1.0); EST CRCL DRUG DOSING (CG) 29.54 mL/min
[2023-10-22] MEDS: Prochlorperazine 10 MG/2 ML SDV IVPUSH ONE (15:35)
[2023-10-22] MEDS: diphenhydrAMINE 50 MG/ML SDV IVPUSH ONE (15:35)
[2023-10-22] MEDS: Sodium Chloride 0.9% 10 ML Syringe FLUSH PRN (15:38)
[2023-10-22 16:37] VITALS: BP 152/62; PULSE 49
== END 2023-10-22 17:26 | disposition home or self-care (01) ==
LOC: JP.ED 12:25
DX: G43.909 Migraine, unspecified, not intractable, without status migrainosus (principal); R47.01 Aphasia; E78.00 Pure hypercholesterolemia, unspecified; Z90.49 Acquired absence of other specified parts of digestive tract; Z90.710 Acquired absence of both cervix and uterus; Z79.899 Other long term (current) drug therapy; Z88.0 Allergy status to penicillin; Z88.5 Allergy status to narcotic agent; Z88.6 Allergy status to analgesic agent; Z88.8 Allergy status to other drugs, medicaments and biological substances; Z88.1 Allergy status to other antibiotic agents; Z88.2 Allergy status to sulfonamides; Z91.018 Allergy to other foods
CPT/HCPCS: 36415; 70551; 80048; 85025; 96365; 96375; 99285; J0780; J1200; J3490; 99284

== ENCOUNTER 2023-11-15 13:58 | Emergency (ER) | payer MEDICARE ==
[2023-11-15 15:46] LABS: BASOPHILS ABSOLUTE AUTO 0.06 K/uL (0.00-0.10); BASOPHILS PERCENT AUTO 1.2 % (0.1-1.3); EOSINOPHILS ABSOLUTE AUTO 0.13 K/uL (0.00-0.40); EOSINOPHILS PERCENT AUTO 2.7 % (0.0-5.4); HEMATOCRIT 35.7 % (34.3-46.0); HEMOGLOBIN 12.6 g/dL (11.2-15.5); IMMATURE GRAN PERCENT AUTO 0.2 % (0.0-0.7); LYMPHOCYTES ABSOLUTE AUTO 1.09 K/uL (0.8-3.3); LYMPHOCYTES PERCENT AUTO 22.4 % (11.4-47.7); MEAN CORPUSCULAR HEMOGLOBIN 33.6 pg (31.6-35.5); MEAN CORPUSCULAR HGB CONC 35.3 g/dL (31.6-35.5); MEAN CORPUSCULAR VOLUME 95.2 fL (81.4-99.0); MONOCYTES ABSOLUTE AUTO 0.65 K/uL (0.20-0.90); MONOCYTES PERCENT AUTO 13.3 % (3.3-12.6); NEUTROPHILS ABSOLUTE AUTO 2.93 K/uL (1.0-7.6); NEUTROPHILS PERCENT AUTO 60.2 % (40.0-78.1); PLATELET COUNT,PLT 258 K/uL (130-375); RED BLOOD CELL COUNT 3.75 M/uL (3.77-5.24); WHITE BLOOD CELL COUNT,WBC 4.9 K/uL (3.2-11.0)
[2023-11-15 15:47] LABS: IMMATURE GRAN ABSOLUTE AUTO 0.01 K/uL (0.00-0.23)
[2023-11-15 15:57] LABS: ALANINE AMINOTRANSFERASE,ALT 36 U/L (12-78); ALBUMIN 3.3 g/dL (3.4-5.0); ALKALINE PHOSPHATASE 49 U/L (46-116); ASPARTATE AMNIOTRANSFERASE,AST 54 U/L (15-37); BILIRUBIN TOTAL 0.7 mg/dL (0.2-1.0); BLOOD UREA NITROGEN,BUN 11 mg/dL (7-18); CALCIUM 9.3 mg/dL (8.5-10.1); CARBON DIOXIDE,CO2 22 mmol/L (21-32); CHLORIDE,CL 109 mmol/L (100-108); ESTIMATED GFR 59 mL/min (>60); GLUCOSE RANDOM 89 mg/dL (74-106); POTASSIUM,K 3.6 mmol/L (3.6-5.2); PROTEIN TOTAL,TP 6.7 g/dL (6.4-8.2); SODIUM,NA 144 mmol/L (140-148)
[2023-11-15 15:58] LABS: ANION GAP 16.6 mmol/L (5.0-14.0); C-REACTIVE PROTEIN < 0.50 mg/dL (<0.50)
[2023-11-15] MEDS: Sodium Chloride 0.9% 10 ML Syringe FLUSH ONE (16:37)
[2023-11-15 16:47] VITALS: BP 155/76; PULSE 89
[2023-11-15] MEDS: Iopamidol 612 MG/ML 100 ML Bottle IV SCH (20:46)
[2023-11-15] MEDS: Sodium Chloride 0.9% 10 ML Syringe FLUSH PRN (20:46)
[2023-11-15] MEDS: Sodium Chloride 0.9% 80 ML IV SCH (20:47)
== END 2023-11-15 18:52 | disposition home or self-care (01) ==
LOC: JP.ED 13:58
DX: R10.84 Generalized abdominal pain (principal); R10.812 Left upper quadrant abdominal tenderness; R11.2 Nausea with vomiting, unspecified; Z88.0 Allergy status to penicillin; Z88.1 Allergy status to other antibiotic agents; Z88.2 Allergy status to sulfonamides; Z88.8 Allergy status to other drugs, medicaments and biological substances; Z79.899 Other long term (current) drug therapy; Z90.49 Acquired absence of other specified parts of digestive tract; Z90.710 Acquired absence of both cervix and uterus
CPT/HCPCS: 36415; 74177; 80053; 83605; 83690; 85025; 86140; 99284; J3490; Q9967

== ENCOUNTER 2024-04-21 12:13 | Emergency (ER) | payer MEDICARE, OTHER ==
[2024-04-21 13:27] LABS: BASOPHILS ABSOLUTE AUTO 0.07 K/uL (0.00-0.10); BASOPHILS PERCENT AUTO 1.3 % (0.1-1.3); EOSINOPHILS ABSOLUTE AUTO 0.25 K/uL (0.00-0.40); EOSINOPHILS PERCENT AUTO 4.8 % (0.0-5.4); HEMATOCRIT 38.8 % (34.3-46.0); HEMOGLOBIN 12.8 g/dL (11.2-15.5); IMMATURE GRAN PERCENT AUTO 0.2 % (0.0-0.7); LYMPHOCYTES ABSOLUTE AUTO 1.14 K/uL (0.8-3.3); LYMPHOCYTES PERCENT AUTO 21.8 % (11.4-47.7); MEAN CORPUSCULAR HEMOGLOBIN 33.2 pg (31.6-35.5); MEAN CORPUSCULAR VOLUME 100.5 fL (81.4-99.0); MONOCYTES ABSOLUTE AUTO 0.51 K/uL (0.20-0.90); MONOCYTES PERCENT AUTO 9.8 % (3.3-12.6); NEUTROPHILS ABSOLUTE AUTO 3.25 K/uL (1.0-7.6); NEUTROPHILS PERCENT AUTO 62.1 % (40.0-78.1); PLATELET COUNT,PLT 241 K/uL (130-375); RED BLOOD CELL COUNT 3.86 M/uL (3.77-5.24); WHITE BLOOD CELL COUNT,WBC 5.2 K/uL (3.2-11.0)
[2024-04-21 13:29] LABS: IMMATURE GRAN ABSOLUTE AUTO 0.01 K/uL (0.00-0.23)
[2024-04-21 13:48] LABS: ALANINE AMINOTRANSFERASE,ALT 34 U/L (12-78); ALBUMIN 3.1 g/dL (3.4-5.0); ALKALINE PHOSPHATASE 48 U/L (46-116); ASPARTATE AMNIOTRANSFERASE,AST 35 U/L (15-37); BILIRUBIN TOTAL 0.4 mg/dL (0.2-1.0); BLOOD UREA NITROGEN,BUN 16 mg/dL (7-18); CALCIUM 9.1 mg/dL (8.5-10.1); CARBON DIOXIDE,CO2 29 mmol/L (21-32); CHLORIDE,CL 110 mmol/L (100-108); CREATININE 1.1 mg/dL (0.6-1.0); EST CRCL DRUG DOSING (CG) 31.74 mL/min; ESTIMATED GFR 52 mL/min (>60); GLUCOSE RANDOM 119 mg/dL (74-106); PROTEIN TOTAL,TP 6.1 g/dL (6.4-8.2); SODIUM,NA 144 mmol/L (140-148)
[2024-04-21 15:24] VITALS: BP 141/72; PULSE 76
== END 2024-04-21 16:33 | disposition home or self-care (01) ==
LOC: JP.ED 12:13
DX: G43.909 Migraine, unspecified, not intractable, without status migrainosus (principal); R47.01 Aphasia; E78.00 Pure hypercholesterolemia, unspecified; Z90.49 Acquired absence of other specified parts of digestive tract; Z90.710 Acquired absence of both cervix and uterus; Z79.899 Other long term (current) drug therapy; Z88.0 Allergy status to penicillin; Z88.5 Allergy status to narcotic agent; Z88.6 Allergy status to analgesic agent; Z88.8 Allergy status to other drugs, medicaments and biological substances; Z88.1 Allergy status to other antibiotic agents; Z88.2 Allergy status to sulfonamides
CPT/HCPCS: 36415; 70544; 70544-26; 80053; 85025; 86140; 93005; 93010; 99283; 99284

== ENCOUNTER 2024-08-29 05:05 | Inpatient (IN) | payer MEDICARE ==
[2024-08-29 05:46] LABS: BASOPHILS PERCENT AUTO 0.2 % (0.1-1.3); EOSINOPHILS ABSOLUTE AUTO 0.12 K/uL (0.00-0.40); EOSINOPHILS PERCENT AUTO 1.1 % (0.0-5.4); IMMATURE GRAN ABSOLUTE AUTO 0.04 K/uL (0.00-0.23); IMMATURE GRAN PERCENT AUTO 0.4 % (0.0-0.7); LYMPHOCYTES ABSOLUTE AUTO 0.75 K/uL (0.8-3.3); LYMPHOCYTES PERCENT AUTO 6.8 % (11.4-47.7); MONOCYTES ABSOLUTE AUTO 0.80 K/uL (0.20-0.90); MONOCYTES PERCENT AUTO 7.3 % (3.3-12.6); NEUTROPHILS ABSOLUTE AUTO 9.22 K/uL (1.0-7.6); NEUTROPHILS PERCENT AUTO 84.2 % (40.0-78.1); PLATELET COUNT,PLT 386 K/uL (130-375); RED BLOOD CELL COUNT 4.61 M/uL (3.77-5.24); WHITE BLOOD CELL COUNT,WBC 11.0 K/uL (3.2-11.0)
[2024-08-29 05:48] LABS: BASOPHILS ABSOLUTE AUTO 0.02 K/uL (0.00-0.10)
[2024-08-29 06:07] LABS: A/G RATIO 1.0 (1.2-2.2); ALANINE AMINOTRANSFERASE,ALT 38 U/L (12-78); ASPARTATE AMNIOTRANSFERASE,AST 43 U/L (15-37); BILIRUBIN TOTAL 0.7 mg/dL (0.2-1.0); BLOOD UREA NITROGEN,BUN 16 mg/dL (7-18); CARBON DIOXIDE,CO2 25 mmol/L (21-32); CHLORIDE,CL 103 mmol/L (100-108); CREATININE 1.1 mg/dL (0.6-1.0); EST CRCL DRUG DOSING (CG) 31.74 mL/min; ESTIMATED GFR 52 mL/min (>60); GLUCOSE RANDOM 123 mg/dL (74-106); POTASSIUM,K 3.6 mmol/L (3.6-5.2); PROTEIN TOTAL,TP 7.3 g/dL (6.4-8.2); SODIUM,NA 141 mmol/L (140-148)
[2024-08-29 06:14] LABS: LACTIC ACID 1.8 mmol/L (0.4-2.0)
[2024-08-29] MEDS: Iopamidol 612 MG/ML 100 ML Bottle IV SCH (07:29)
[2024-08-29] MEDS: Sodium Chloride 0.9% 10 ML Syringe FLUSH PRN (07:29)
[2024-08-29] MEDS: fentaNYL 50 MCG/ML SDV IVPUSH ONE ×2 (08:20→13:58)
[2024-08-29] MEDS: Ondansetron 4 MG/2 ML SDV IVPUSH ONE (08:32)
[2024-08-29] MEDS ORDERED: Sodium Chloride 0.9% 10 ML Syringe FLUSH PRN (14:11)
[2024-08-29] MEDS: Ondansetron 4 MG/2 ML SDV IV PRN (20:13)
[2024-08-29] MEDS ORDERED: Non-Formulary Medication 1 Each (Budesonide/Formoterol [Symbicort 160-4.5 Mcg Inhaler (6 G INH SCH (21:00)
[2024-08-30 06:10] LABS: PLATELET COUNT,PLT 358.0 K/uL (130-375); RED BLOOD CELL COUNT 3.84 M/uL (3.77-5.24); WHITE BLOOD CELL COUNT,WBC 5.5 K/uL (3.2-11.0)
[2024-08-30 06:29] LABS: BLOOD UREA NITROGEN,BUN 19.0 mg/dL (7-18); CARBON DIOXIDE,CO2 27.0 mmol/L (21-32); CHLORIDE,CL 107.0 mmol/L (100-108); CREATININE 1.0 mg/dL (0.6-1.0); EST CRCL DRUG DOSING (CG) 34.91 mL/min; ESTIMATED GFR 59.0 mL/min (>60); GLUCOSE RANDOM 82.0 mg/dL (74-106); POTASSIUM,K 3.5 mmol/L (3.6-5.2); SODIUM,NA 144.0 mmol/L (140-148)
[2024-08-30] MEDS ORDERED: Potassium Chloride 20 MEQ Tab.ER PO ONE (08:30)
[2024-08-30] MEDS ORDERED: BISOPROLOL 10 MG PO SCH (16:00)
[2024-08-31] MEDS: Diatrizoate Meglumine/Diatrizoate Sodium 37% 120 ML Bottle PO SCH (12:02)
[2024-08-31] MEDS ORDERED: Formoterol/Mometasone 200-5 MCG 8.8 GM Inhaler IH PRN (15:59)
[2024-09-01] MEDS: Acetaminophen/oxyCODONE 325-10 MG Tab PO SCH (09:59)
[2024-09-01 11:47] VITALS: BP 144/61; PULSE 68
== END 2024-09-01 16:05 | disposition home or self-care (01) | DRG 389 ==
LOC: JP.ED 05:05 → JP.MS 13:02
PROVIDERS: ADMIT Hospitalist; ATTEND Hospitalist
PROC: 0D9670Z Drainage of Stomach with Drainage Device, Via Natural or Artificial Opening (ICD-10-PCS; principal; 2024-08-29)
DX: K56.609 Unspecified intestinal obstruction, unspecified as to partial versus complete obstruction (principal); K52.1 Toxic gastroenteritis and colitis; H54.7 Unspecified visual loss; E78.00 Pure hypercholesterolemia, unspecified; M19.90 Unspecified osteoarthritis, unspecified site; G89.29 Other chronic pain; M54.9 Dorsalgia, unspecified; Z88.6 Allergy status to analgesic agent; Z79.51 Long term (current) use of inhaled steroids; G43.909 Migraine, unspecified, not intractable, without status migrainosus; F32.A Depression, unspecified; M45.9 Ankylosing spondylitis of unspecified sites in spine; Z96.659 Presence of unspecified artificial knee joint; Z96.619 Presence of unspecified artificial shoulder joint; T45.1X5A Adverse effect of antineoplastic and immunosuppressive drugs, initial encounter; I10 Essential (primary) hypertension; Z98.49 Cataract extraction status, unspecified eye; Z85.41 Personal history of malignant neoplasm of cervix uteri; Y92.89 Other specified places as the place of occurrence of the external cause; Z90.49 Acquired absence of other specified parts of digestive tract; Z88.1 Allergy status to other antibiotic agents; Z88.2 Allergy status to sulfonamides; Z88.5 Allergy status to narcotic agent; Z88.8 Allergy status to other drugs, medicaments and biological substances; Z79.899 Other long term (current) drug therapy; Z79.52 Long term (current) use of systemic steroids; Z79.891 Long term (current) use of opiate analgesic; Z90.710 Acquired absence of both cervix and uterus
CPT/HCPCS: 36415; 43752; 71045 ×2; 74018 ×2; 74177; 80053; 83605; 83690; 85025; 86140; 96361; 96374; 96375; 99285; J2405; J3010; J7030; Q9967; 74021; 74021-26; 80048; 83735; 84132; 85027; 99223; 99231; 99238; A9270-GY; J1171; J3480; Q9963